=== PATIENT | male | born 2000 | race Caucasian/White ===

== ENCOUNTER 2021-03-27 07:45 | Day surgery (SDC) | payer BC ==
[2021-03-27 08:15] LABS: Absolute Lymphocytes (CBC) 1.4 K/uL (0.7-4.9); Basophils % 0.5 % (0-1.3); Hematocrit 42.8 % (39.6-49.0); Lymphocytes % 29.9 % (15.3-44.8); MPV 7.5 fL (7.6-11.3); RBC Red Blood Cell Count 5.06 M/uL (4.33-5.43)
[2021-03-27] MEDS ORDERED: KETOROLAC 30 MG/ML INJ ONE (09:42)
[2021-03-27] MEDS ORDERED: dexAMETHasone 10 MG/ML VIAL ONE (09:42)
[2021-03-27] MEDS ORDERED: propofoL 200 MG/20 ML VIAL IV ONE (09:42)
[2021-03-27] MEDS ORDERED: FENTANYL CITR 100 MCG/2 ML ONE ×2 (09:42→11:22)
[2021-03-27] MEDS ORDERED: MIDAZOLAM HCL 2 MG/2 ML INJ ONE (09:42)
[2021-03-27] MEDS ORDERED: ROCURONIUM 50 MG/5 ML VIAL IV ONE (09:43)
[2021-03-27] MEDS ORDERED: ONDANSETRON 4 MG/2 ML VIAL ONE (09:43)
[2021-03-27] MEDS ORDERED: LIDOCAINE 1% MPF 2 ML AMPULE ONE (09:43)
[2021-03-27] MEDS ORDERED: Ringers Lactate 1,000 ML IV ONE (09:45)
[2021-03-27] MEDS ORDERED: CIPROFLOXACIN 400mg IV 400 MG/200 ML BAG IV ONE (09:45)
[2021-03-27] MEDS ORDERED: BUPIVACAINE 0.5% PF 10 ML VIAL ONE (10:36)
[2021-03-27] MEDS ORDERED: METHYLENE BLUE 0.5% 10 ML AMP ONE (10:36)
[2021-03-27 11:54] VITALS: O2SAT 100
[2021-03-27] MEDS ORDERED: HYDROCODONE/APAP 7.5/325 MG TAB PO ONE (12:45)
[2021-03-27] MEDS ORDERED: HYDROCODONE/APAP 7.5/325 MG TAB ONE (13:13)
[2021-03-27 13:22] VITALS: BP 107/60
[2021-03-27 13:24] VITALS: TEMP 97.6
--- NOTE | 2021-03-27 14:18 | OP ---
Date of Procedure: 03/27/2021 Surgeon: Rubén Pimentel MD Manager [employer]ing: None. Preoperative Diagnosis: Pilonidal cyst. Postoperative Diagnosis: Complex pilonidal cyst. Procedure Performed: Wide excision of complex pilonidal cyst. Estimated Blood Loss: Minimal. Specimen: Pilonidal cyst. Findings: As above. Anesthesia: General. Complications: None. Disposition: The patient tolerated the procedure in stable condition and taken to Recovery in good g eneral condition. Procedure In Detail: The patient was brought to the OR and placed in supine position. General anest hesia begun. The patient was placed in prone position, prepped and draped in the usual sterile fashi on. The patient had 6 pits, the bottom one was the largest one. In the gluteal midline, there was a visible cyst on the lower right hand side of midline. This was explored using a probe and methylene blue was injected filling the entire cystic cavity in the upper right part. Then, a 15-blade was us ed to make an ellipse of skin approximately 10 x 4 cm to include the entire cyst and then all of the blue tissue all the way down to presacral fascia was excised and sent to Pathology as specimen. Woun d irrigated. Bleeding controlled with cautery. [place] drain quarter-inch was placed and secured wi th 3-0 nylon and 0 chromic and 2-0 chromic used to approximate the deep and superficial subcutaneous tissue, and 3-0 nylon interrupted sutures were used to close skin. Sterile dressing applied. The pa tient was awakened and taken to Recovery in good general condition. Discharge Note: The patient will go to day surgery and home when stable. Disposition: Home. Condition: Stable. Discharge Instructions: Resume home medications and diet. Activity as tolerated. No heavy lifting. Remove outer dressing . Shower. Keep wound clean and dry. Dry gauze to wound daily. F ollow up in my office in 1 week. Call for appointment. Tylenol No.3 one tablet p.o. q.4 p.r.n. pain , Cipro 500 mg p.o. q.12. /MODL Voice ID: [id number] Report ID: [id number]
== END 2021-03-27 13:20 | disposition home or self-care (01) ==
LOC: OR 07:45
PROVIDERS: ATTEND Surgery
PROC: 0JB90ZZ Excision of Buttock Subcutaneous Tissue and Fascia, Open Approach (ICD-10-PCS; principal; 2021-03-27 09:30)
DX: L05.91 Pilonidal cyst without abscess (principal)
CPT/HCPCS: 11770; 85025; 36415; 88304; J2704; J2250; J3010 ×2; J1100; J7120; J2405; J0744